=== PATIENT | male | born 1970 | race Caucasian/White ===

== ENCOUNTER 2018-05-05 16:04 | Observation (INO) ==
[2018-05-05] MEDS ORDERED: *HR* Morphine 2 MG/ML SYRINGE IVP ONE (18:57)
--- NOTE | 2018-05-05 18:59 | Internal Med History&Physical ---
Addendum entered and electronically signed by Zainab Mack 05/05/18 20:19: Reported D-Dimer result in current H and P is from 09/2015. Original Note: <MartinaZainab Bill - Last Filed: 05/05/18 20:05> Date of Encounter: 05/05/18 Time of Encounter: 18:58 Internal Medicine - H&P: HPI Chief complaint: Chest pain Admitted From: Hospital to Hospital Transfer Plans for Post Hospital Care: Home History of present illness: Mr. Londono is a 47 year old male with history of Hep C, COPD, GERD, current smoker, syncope, anxiety, depression, and IVDU. The patient began having CP on Monday and was seen here in the ED. He indicated that he became inpatient and left. Patient is a transfer from [facility], reports having sob, increased N and V from his norm and chest pain for the past 5 days. The patient states he takes a zofran daily related to his Hep C. D-dimer was 433, Chest xray was negative. Trop was <0.03 at [facility]. The patient indcated family history of cardiac disease, mother had triple bypass at age 70, and father in 's of heart trouble. The patient currently smokes and reports adverse reactions with nicotene patches , as it causes him to become psychotic and have vivid dreams. He indicated that he had a stress test a few years ago, that was normal. He reports having a syncopal event with collapse at that time. He indicated that he was hypotensive at the time also. Past Med Surg Social Fam HX - Past Medical History Medical history: non-contributory, arthritis, GERD Additional medical history: CHRONIC PANCREATITIS Psychiatric history: depression, other - Past Surgical History Surgical History: non-contributory, orthopedic, other Additional surgical history: Rotator cuff Bilateral. bumions removed - Social History Smoking Status: Current every day smoker Smokeless Tobacco Status: No Alcohol use: none Drug use: marijuana - Family History Father Age at : 39 Cause of : IA Mother Hx Family Cardiac Disorders: Yes (CABG and PACER) Hx Family Respiratory Disorders: Yes Internal Medicine - H&P: Meds Methocarbamol [Robaxin-750] 750 mg PO Q8H PRN #21 tablet 10/03/15 [Rx] Albuterol Sulfate [Albuterol Inhaler] 1 puff IH DAILY 04/27/18 [History] Naproxen [Naprosyn] 500 mg PO DAILY 04/27/18 [History] Omeprazole [PriLOSEC] 20 mg PO DAILY 04/27/18 [History] Tiotropium [Spiriva] 18 mcg IH DAILY 04/27/18 [History] Desvenlafaxine [Khedezla] 50 mg PO DAILY 05/05/18 [History] 3 Allergy/AdvReac Type Severity Reaction Status Date / Time aspirin AdvReac Rash Verified 04/27/18 13:07 Erythromycin Base AdvReac Hives Verified 04/27/18 13:07 gabapentin AdvReac Confusion Verified 04/27/18 13:07 All Systems PM: A 10-system review of systems was performed and is negative for pertinent findings except as documented above in the HPI. - Constitutional Constitutional: fatigue, no chills, no fever(s), no night sweats - EENT Eyes: no change in vision, no discharge, no pain, no photophobia Ears: no ear discharge, no ear pain, no tinnitus Nose, mouth and throat: no dysphagia, no nasal discharge, no neck pain, no sore throat - Cardiovascular Cardiovascular ROS IM: chest pain, dyspnea, lightheadedness, no diaphoresis, no palpitations, no syncope - Respiratory Respiratory: no cough, no dyspnea, no wheezing, no excessive phlegm production - Gastrointestinal Gastrointestinal: nausea, vomiting, no abdominal pain, no diarrhea, no hematemesis, no hematochezia, no melena - Musculoskeletal Musculoskeletal ROS IM: no numbness, no tingling - Integumentary Integumentary IM: no rash, no unusual bruising - Neurological Neurological ROS: no confusion, no convulsions, no focal weakness, no numbness, no tingling, no tremor(s) - Hematologic/Lymphatic Hematologic/Lymphatic: no easy bruising - Constitutional Vitals: Temp Pulse Resp BP Pulse Ox 97.8 F 56 20 122/76 98 05/05/18 18:35 05/05/18 18:35 05/05/18 18:35 05/05/18 18:35 05/05/18 18:35 General appearance: Present: A&O X 3, answers questions appropriately - Head Head exam: Present: atraumatic, normocephalic - Eye Eye exam: Present: PERRL, conjuntiva pink, sclera anicteric Pupils: Present: PERRL - Neck Neck exam general surgery: Present: supple, trachea midline. Absent: lymphadenopathy - Respiratory Respiratory exam: Present: CTAB. Absent: accessory muscle use, rales, rhonchi, wheezes - Cardiovascular Cardiovascular exam: Present: RRR, +S1, +S2. Absent: diastolic murmur, gallop, rubs, systolic murmur - GI/Abdominal GI/Abdominal exam: Present: normal bowel sounds, soft, no peritoneal signs. Absent: distended, tenderness - Extremities Exam Extremities exam: Present: warm, radial pulses palpable and symmetrical. Absent : calf tenderness, cyanotic, pedal edema - Neurological Exam Neurological exam: Present: CN II-XII intact, oriented X3, no focal deficits. Absent: pronater drift, facial droop, speech deficit - Skin Skin exam: Present: dry, intact - Assessment and plan (1) Chest pain Current Visit: No Status: Acute Assessment and plan: Exertional and rest chest pain Serial cardiac enzymes Cardiac monitoring Echocardiogram Stress test scheduled Nitroglycerin SL when necessary Qualifiers: Chest pain type: unspecified Qualified Code(s): R07.9 - Chest pain, unspecified (2) Tobacco abuse Current Visit: Yes Status: Chronic Assessment and plan: Smoking cessation education (3) Hepatitis C Current Visit: Yes Status: Chronic Assessment and plan: Managed outpatient Qualifiers: Viral hepatitis chronicity: unspecified Hepatic coma status: without hepatic coma Qualified Code(s): B19.20 - Unspecified viral hepatitis C without hepatic coma (4) COPD (chronic obstructive pulmonary disease) Current Visit: Yes Status: Chronic Assessment and plan: Controlled CXR is negative Continue home medications Monitor daily labs Qualifiers: COPD type: unspecified COPD Qualified Code(s): J44.9 - Chronic obstructive pulmonary disease, unspecified - Time Spent With Patient Total time spent is greater than 50% in coordination of care (as documented) at patient's floor/unit and/or counseling patient: 25 - 35 minutes <Miki Gray - Last Filed: 05/05/18 21:24> Date of Encounter: 05/05/18 Internal Medicine - H&P: HPI History of present illness: Mr. Londono is a 47 year old male All Systems PM: A 10-system review of systems was performed and is negative for pertinent findings except as documented above in the HPI. - Constitutional Vitals: Temp Pulse Resp BP Pulse Ox 97.8 F 56 20 122/76 98 05/05/18 18:35 05/05/18 18:35 05/05/18 18:35 05/05/18 18:35 05/05/18 18:35 - Attending Attestation I have seen and examined the patient with Zainab Mack CNP and agree with his/ her assessment and plan. 47-year-old male with history of COPD, tobacco abuse, and family history of premature CAD, presented with 5 day history of intermittent chest pain. Atypical in nature, troponin -ve x 1, EKG NSR without ST elevations. Physical exam is essentially unremarkable with normal S1-S2 without murmur and clear lung sounds. We will check troponin to rule out myocardial infarction. Timing of stress test was discussed with the patient and it appears that he wants to have it done as an outpatient as long as troponin continues to be -ve. To be followed up in the morning. Smoking cessation also emphasized. Miki Gray MD - Time Spent With Patient Total time spent is greater than 50% in coordination of care (as documented) at patient's floor/unit and/or counseling patient:
[2018-05-05] MEDS ORDERED: Naloxone 0.4 MG/ML INJ IVP PRN (19:00)
[2018-05-05] MEDS ORDERED: Methocarbamol 750 MG TABLET PO PRN (22:30)
[2018-05-06 03:37] LABS: Basophils % 0.4 %; Eosinophils # 0.1 K/mcL (0.0-0.6); Eosinophils % 1.2 %; Hematocrit 47.8 % (37.5-50.1); Immature Granulocytes % 0.3 % (0-4); Lymphocytes # 3.7 K/mcL (0.6-4.6); Lymphocytes % 41.4 %; Mean Corpuscular HGB Conc 33.5 g/dL (31.6-35.5); Mean Corpuscular Volume 92.6 fL (83.0-100.0); Mean Platelet Volume 9.4 fL (9.4-12.4); Monocytes # 0.5 K/mcL (0.0-1.3); Monocytes % 5.9 %; Neutrophils # 4.5 K/mcL (1.6-8.9); Platelet Count 211 K/mcL (140-400); Red Blood Count 5.16 M/mcL (4.19-5.50); Red Cell Distribution Width 14.5 % (11.5-14.5); Segmented Neutrophils % 50.8 %
[2018-05-06] MEDS: Nitroglycerin 0.4 MG TAB.SUBL SL PRN ×5 (03:51→21:48)
[2018-05-06 04:01] LABS: Troponin I < 0.03 ng/mL (< 0.04)
[2018-05-06 04:31] LABS: BUN/Creatinine Ratio 12 (6-26); Blood Urea Nitrogen 16 mg/dL (6-20); Calcium 9.3 mg/dL (8.6-10.3); Carbon Dioxide 28 mEq/L (23-29); Chloride 104 mEq/L (98-107); Glucose 82 mg/dL (70-105); Osmolality,Calculated 288 (280-300); Potassium 4.7 mEq/L (3.5-5.1); Sodium 139 mEq/L (136-145); eGFR For Non-African Americans 59 (> 60)
[2018-05-06] MEDS: Tiotropium 18 MCG inhalation IH SCH (07:31)
[2018-05-06] MEDS: Venlafaxine XR (24 HR) 75 MG CAP.ER.24H PO SCH (10:10)
--- NOTE | 2018-05-06 10:36 | Internal Med Progress Note ---
Hospitalist Progress Note - Encounter Date of Encounter: 05/06/18 Time of Encounter: 10:31 - Subjective Interval History: Patient seen and examined at bedside. Cont to complain of SOB on exertion and CP on exertion. CP is tight pressure radiating to back and constant not relieved with rest 3/10. Will obtain d dimer - Exam Vitals: Temp Pulse Resp BP Pulse Ox 97.7 F 54 15 125/82 100 05/06/18 06:44 05/06/18 06:44 05/06/18 07:32 05/06/18 06:44 05/06/18 07:36 Exam: General appearance: Present: A&O X 3, answers questions appropriately - Head Head exam: Present: atraumatic, normocephalic - Eye Eye exam: Present: PERRL, conjuntiva pink, sclera anicteric Pupils: Present: PERRL - Neck Neck exam general surgery: Present: supple, trachea midline. Absent: lymphadenopathy - Respiratory Respiratory exam: Present: CTAB. Absent: accessory muscle use, rales, rhonchi, wheezes - Cardiovascular Cardiovascular exam: Present: RRR, +S1, +S2. Absent: diastolic murmur, gallop, rubs, systolic murmur - GI/Abdominal GI/Abdominal exam: Present: normal bowel sounds, soft, no peritoneal signs. Absent: distended, tenderness - Extremities Exam Extremities exam: Present: warm, radial pulses palpable and symmetrical. Absent : calf tenderness, cyanotic, pedal edema - Neurological Exam Neurological exam: Present: CN II-XII intact, oriented X3, no focal deficits. Absent: pronater drift, facial droop, speech deficit - Skin Skin exam: Present: dry, intact - Assessment and Plan (1) Chest pain Current Visit: Yes Status: Acute Assessment and Plan: 1 Exertional and pain at rest Cardiac enzymes negative D dimer completed OK echo ordered stress test orderd in am Nitro as needed (2) COPD (chronic obstructive pulmonary disease) Current Visit: Yes Status: Chronic Assessment and Plan: 1 Stable at this time - cont with bronchodilators O2 as needed (3) Hepatitis C Current Visit: Yes Status: Chronic Assessment and Plan: stable cont outpatient follow up (4) Tobacco abuse Current Visit: Yes Status: Chronic Assessment and Plan: encouraged to stop smoking - offered smoking cessation aides- declined at this time (5) DVT prophylaxis Current Visit: Yes Status: Acute Assessment and Plan: lovenox taique - Time Spent with Patient Total time spent is greater than 50% in coordination of care (as documented) at patient's floor/unit and/or counseling patient: Internal Medicine: Result - Labs CBC & Chem 7: 05/06/18 02:57 05/06/18 02:57 Labs: Short CBC 05/06/18 Range/Units 02:57 WBC 9.0 (4.3-11.1) K/mcL Hgb 16.0 (12.9-16.9) g/dL Hct 47.8 (37.5-50.1) % Plt Count 211 (140-400) K/mcL Neutrophils # 4.5 (1.6-8.9) K/mcL BMP 05/06/18 02:57 Sodium 139 Potassium 4.7 Chloride 104 Carbon Dioxide 28 BUN 16 Creatinine 1.29 Glucose 82 Calcium 9.3 Cardiac Enzymes 05/05/18 05/06/18 Range/Units 21:09 02:57 Troponin I < 0.03 < 0.03 (< 0.04) ng/mL Consult Discharge Plan - Plan Referrals: NONE,PCP [Primary Care Provider] - (1) Chest pain Qualifiers: Chest pain type: unspecified Qualified Code(s): R07.9 - Chest pain, unspecified (2) COPD (chronic obstructive pulmonary disease) Qualifiers: COPD type: unspecified COPD Qualified Code(s): J44.9 - Chronic obstructive pulmonary disease, unspecified (3) Hepatitis C Qualifiers: Viral hepatitis chronicity: unspecified Hepatic coma status: without hepatic coma Qualified Code(s): B19.20 - Unspecified viral hepatitis C without hepatic coma
[2018-05-06] MEDS ORDERED: Ondansetron 4 MG/2 ML VIAL IVP PRN (21:41)
[2018-05-06] MEDS ORDERED: *HR* Morphine 2 MG/ML SYRINGE IVP ONE (21:59)
[2018-05-07] MEDS ORDERED: *HR* Enoxaparin 40 MG/0.4 ML SYRINGE SQ SCH (07:00)
--- NOTE | 2018-05-07 07:59 | Electrocardiograph Report ---
[address] [address] Test Date: 2018-05-06 Pat Name: Aime Londono Department: 113 Room: 3B46 Gender: M Job Development Specialist: : 1970 Requested By: Zainab Mack Order Number: [id number] Reading MD: Bhargav Orosco Measurements Intervals [place] Rate: 66 P: 47 NC: 160 QRS: 20 QRSD: 94 T: 55 QT: 378 QTc: 391 Interpretive Statements SINUS RHYTHM Electronically Signed On 05-07-2018 7:57:39 EDT by Bhargav Orosco
[2018-05-07] MEDS: Venlafaxine XR (24 HR) 75 MG CAP.ER.24H PO SCH (09:27)
[2018-05-07] MEDS: Tiotropium 18 MCG inhalation IH SCH (09:27)
[2018-05-07] MEDS ORDERED: Isovue-370 500 ML INFUS..BTL IV ONE (14:25)
--- NOTE | 2018-05-07 15:40 | Discharge Summary ---
- NOTES TO OUTPATIENT PROVIDER Notes to Outpatient Provider: Had Stress- Small sized, moderate intensity resting perfusion defect involving the. apex. Perfusion normalizes with stress. Findings represent artifact. * Mild to moderate decrease in perfusion during stress involving the. basal-mid inferoseptum. Horizontal patient motion limits interpretation. * Other segments appear to demonstrate normal rest and stress perfusion. uptake. * Wall motion/thickening appear normal. Pulmonary nodule - follow up within 12 mos Orders not resulted at time of discharge: Pending orders 05/05/18 19:11 NM osman perf SPECT multi [NM] Routine Date of Encounter: 05/07/18 Time of Encounter: 15:36 - Discharge Diagnosis (1) Chest pain Priority: Primary Status: Acute Qualifiers: Chest pain type: unspecified Qualified Code(s): R07.9 - Chest pain, unspecified (2) COPD (chronic obstructive pulmonary disease) Priority: Secondary Status: Chronic Qualifiers: COPD type: unspecified COPD Qualified Code(s): J44.9 - Chronic obstructive pulmonary disease, unspecified (3) Hepatitis C Priority: Secondary Status: Chronic Qualifiers: Viral hepatitis chronicity: unspecified Hepatic coma status: without hepatic coma Qualified Code(s): B19.20 - Unspecified viral hepatitis C without hepatic coma (4) Tobacco abuse Priority: Secondary Status: Chronic Hospital course: Mr. Londono is a 47 year old male past medical hx of Hep C COPD current smoker anxiety depression and IVDU. He has been experiencing CP and increasing SOB N/V EKG NSR CXR no acute process Trop are neegative X3 He underwent cardiac stress test which revealed :Small sized, moderate intensity resting perfusion defect involving the apex. Perfusion normalizes with stress. Findings represent artifact. Mild to moderate decrease in perfusion during stress involving the basal-mid inferoseptum. Horizontal patient motion limits interpretation.Other segments appear to demonstrate normal rest and stress perfusion uptake.Wall motion/thickening appear normal. I discussed results with DR Villarreal cardiology who advised to have patient follow up as outpatient. Patient continue d to complain of SOB NO wheezing or cough. CTA was performed which was negative for any PE but did show Multiple 3-5 mm noncalcified right upper and middle lobe lung nodules.- will have follow up as outpatient in 12 mos Updated patient of findings and advised him to stop smoking declined any cessation aides. Informed him to follow up with cardiology and made appointment at residency clinic . Patient verbalized understanding. He is hemodynamically stable sats are stable on ambulation/ He is ready for discharge Discharge discussed with: patient - Time Spent with Patient Total time spent providing and/or coordinating discharge services: - Discharge Medications Home Medications: Methocarbamol [Robaxin-750] 750 mg PO Q8H PRN #21 tablet 10/03/15 [Rx] Albuterol Sulfate [Albuterol Inhaler] 2 puff IH QID PRN 04/27/18 [History] Omeprazole [PriLOSEC] 20 mg PO DAILY 04/27/18 [History] Desvenlafaxine [Khedezla] 50 mg PO DAILY 05/05/18 [History] Acetyl/Methyl-B12/Lmefolate Ca [l-Methyl-[place] Tablet] 1 tab PO DAILY 05/06/18 [History] Naproxen Sodium [Naproxen Sodium Cr] 500 mg PO BID 05/06/18 [History] Tiotropium [place] [Spiriva Respimat] 2 puff IH DAILY 05/06/18 [History] Allergies/Adverse Reactions: 3 Allergy/AdvReac Type Severity Reaction Status Date / Time aspirin AdvReac Rash Verified 04/27/18 13:07 Erythromycin Base AdvReac Hives Verified 04/27/18 13:07 gabapentin AdvReac Confusion Verified 04/27/18 13:07 Date of admission: 05/05/18 18:00 Primary care physician: PCP NONE Discharging clinician: Jacquelyn Strong Anticipated date of discharge: 05/07/18 - Constitutional Vitals: Temp Pulse Resp BP Pulse Ox 98.1 F 64 18 118/79 97 05/07/18 11:21 05/07/18 11:21 05/07/18 11:21 05/07/18 11:21 05/07/18 11:21 General appearance: Present: A&O X 3, answers questions appropriately Exam: as above - Head Head exam: Present: atraumatic, normocephalic - Eye Eye exam: Present: PERRL, conjuntiva pink, sclera anicteric Pupils: Present: PERRL - Neck Neck exam general surgery: Present: supple, trachea midline. Absent: lymphadenopathy - Respiratory Respiratory exam: Present: CTAB. Absent: accessory muscle use, rales, rhonchi, wheezes - Cardiovascular Cardiovascular exam: Present: RRR, +S1, +S2. Absent: diastolic murmur, gallop, rubs, systolic murmur - GI/Abdominal GI/Abdominal exam: Present: normal bowel sounds, soft, no peritoneal signs. Absent: distended, tenderness - Extremities Exam Extremities exam: Present: warm, radial pulses palpable and symmetrical. Absent : calf tenderness, cyanotic, pedal edema - Neurological Exam Neurological exam: Present: CN II-XII intact, oriented X3, no focal deficits. Absent: pronater drift, facial droop, speech deficit - Skin Skin exam: Present: dry, intact - Patient Status Disposition: Home, Self-Care Condition: Good Functional capacity at discharge: independent ambulation Overall status at discharge: patient is back to baseline - Discharge Instructions Instructions: Chest Pain (DC), Chronic Obstructive Pulmonary Disease (DC) Follow Up With: Abraham Villarreal DO [Partnered Physician] - 06/01/18 11:00 am Mariely Singletary CNP [Advanced Practice Nurse] - 05/14/18 3:30 pm (Requires 24 hour notice for re-schedule or cancellation. Office will not prescribe any controlled substance. Arrive at 3:00 if you not get new patient packet in the mail. You will have to take your insurance card and ID.) - Diet and Activity Activity: increase activity as tolerated Diet: advance to your usual diet - VTE Documentation of Mechanical Device: Intermittent pneumatic compression device
[2018-05-07 16:14] VITALS: BP 130/84
== END 2018-05-07 16:35 | disposition home or self-care (01) ==
LOC: 3BNU
PROVIDERS: ADMIT Internal Medicine; ATTEND Internal Medicine